=== PATIENT | female | born 2000 | race African-American/Black ===

== ENCOUNTER 2023-05-18 07:51 | Emergency (ER) | payer OTHER ==
[~2023-05-18] VITALS: Ht 165.1 cm; Wt 79.5 kg
[2023-05-18 07:54] VITALS: TEMP 98.4
[2023-05-18] MEDS ORDERED: KETOROLAC TROMETHAMINE 60 MG/2 ML VIAL IM ONE (12:00)
[2023-05-18] MEDS ORDERED: CYCLOBENZAPRINE HCL 10 MG TABLET PO ONE (12:00)
[2023-05-18] MEDS ORDERED: IBUP-1492 PO (14:10)
[2023-05-18] MEDS ORDERED: BACL10TA PO (14:11)
[2023-05-18 14:32] VITALS: BP 131/76; PULSE 86; RESP 16
== END 2023-05-18 14:33 | disposition home or self-care (01) ==
LOC: EMS 07:54
DX: S39.012A Strain of muscle, fascia and tendon of lower back, initial encounter (principal); F41.9 Anxiety disorder, unspecified; F32.A Depression, unspecified; X58.XXXA Exposure to other specified factors, initial encounter; Y93.89 Activity, other specified; Y92.89 Other specified places as the place of occurrence of the external cause; Y99.8 Other external cause status
CPT/HCPCS: 99285; 72131; 96372; J1885